=== PATIENT | female | born 1950 | race Caucasian/White ===

== ENCOUNTER 2016-09-02 05:50 | Day surgery (SDC) | payer OTHER ==
[2016-08-25 12:20] LABS: HEMATOCRIT 42.2 % (36.0-48.0); HEMOGLOBIN 13.6 g/dL (12.0-16.0)
[2016-08-25 12:33] LABS: BUN (BLOOD UREA NITROGEN) 16 MG/DL (6-23); CHLORIDE, SERUM 104 MMOL/L (96-112); CO2 (CARBON DIOXIDE) 29 MMOL/L (24-34); GFR AFRICAN AMERICAN 90 ML/MIN (>=60); GFR NON AFRICAN AMERICAN 77 ML/MIN (>=60); GLUCOSE, SERUM 100 MG/DL (60-99); POTASSIUM, SERUM 4.6 MMOL/L (3.5-5.3); SODIUM, SERUM 142 MMOL/L (135-148)
--- NOTE | ~2016-09-02 | OP ---
Record Of Operation [facility] [address] [place]. [address] NAME: TORI DU : 52 STATUS : REG [facility]#: [id number] AGE: 66 ADM/REG DATE : 09/02/16 MR#: [id number] REPORT SERV DATE: 09/02/16 DICTATED BY: JOE CERVANTES DATE: 09/02/16 REPORT STATUS : Draft TRANSCRIBED BY: MODL DATE: 09/02/16 DATE OF PROCEDURE: 09/02/2016 ANESTHESIA: General. COMPLICATIONS: None. ESTIMATED BLOOD LOSS: 10 mL. PREOPERATIVE DIAGNOSIS: Stress urinary incontinence. POSTOPERATIVE DIAGNOSIS: Stress urinary incontinence. OPERATION: 1. Advantage Fit suburethral sling. 2. Cystoscopy. PROCEDURE IN DETAIL: The patient was taken to the operating room and placed on the operating table in the Ruiz stirrups. After adequate anesthesia, the patient was prepped and draped in usual sterile fashion. The anterior vaginal wall was sharply and bluntly dissected off the underlying anterior fibromuscular tissue. Using the Advantage Fit system, needles were inserted upward through the retropubic space, and the mesh was placed just distal to the urethrovesical junction without any tension. The wound was irrigated. Hemostasis was noted to be good. Excess anterior vaginal wall was excised and reapproximated with running 2-0 Vicryl suture. Cystoscopy was performed ,with bilateral ureteral efflux of Pyridium dye, and no damage or sutures to the bladder. Leo and vaginal pack were placed. The patient tolerated the procedure well and taken to recovery room in stable condition. TISHA Joe Cervantes M.D. / [id number] CC: Rico Hyman JOHN D.
[~2016-09-02 05:50] MED LIST: ALEVE220 MG PO; CALTRAT600 PO; CONSTULOSE PO; CRESTOR10 PO; DULERA 100 MCG/13 GM INH; HUMIRA PEN SC; KAPIDEX60 MG PO; LORTAB 5 PO; METHOC500B PO; METHOC750B PO; NEXIUM20 M1 PO; P5 PO; PAXIL40 MG PO; PCET PO; PERCOCET1 TA4 PO; PLAQ200B PO; PVC V; TRAZ100 PO; VITD PO; ZANTAC 150 PO; ZESTORETIC1 TAB PO
[2016-09-02 12:10] LABS: BASOPHILS 0.2 %; BASOPHILS ABSOLUTE 0.01 10/3/uL (0.0-0.16); EOSINOPHILS 0.5 %; EOSINOPHILS ABSOLUTE 0.03 10/3/uL (0.0-0.53); HEMATOCRIT 39.1 % (36.0-48.0); HEMOGLOBIN 12.9 g/dL (12.0-16.0); IMMATURE GRANULOCYTES 0.2 %; IMMATURE GRANULOCYTES ABSOLUTE 0.01 10/3/uL (0.0-0.11); LYMPHOCYTES 12.7 %; LYMPHOCYTES ABSOLUTE 0.83 10/3/uL (0.67-4.30); MEAN CORPUSCULAR HEMOGLOB 30.6 pg (26.0-34.0); MEAN CORPUSCULAR VOLUME 92.9 fL (80-100); MEAN PLATELET VOLUME 10.6 fL (9.2-13.0); MONOCYTES 1.7 %; MONOCYTES ABSOLUTE 0.11 10/3/uL (0.21-1.20); NEUTROPHILS 84.7 %; NEUTROPHILS ABSOLUTE 5.53 10/3/uL (2.02-8.40); PLATELET COUNT 171 10/3/uL (150-400); RBC DISTRIBUTION WIDTH 13.5 % (12.0-16.0)
[2016-09-02 12:12] LABS: MANUAL DIFF NO %; RED CELL COUNT 4.21 10/6/uL (4.0-5.6); WHITE BLOOD CELLS 6.5 10/3/uL (4.5-10.5)
[2016-11-29] MEDS ORDERED: AREDS 2 PO (10:03)
[2016-11-29] MEDS ORDERED: VITD PO (10:04)
== END 2016-09-02 13:36 | disposition home or self-care (01) ==
LOC: SDC 05:50
PROVIDERS: Obstetrics & Gynecology Gynecology
PROC: 0TSD0ZZ Reposition Urethra, Open Approach (ICD-10-PCS; principal; 2016-09-02 07:15)
DX: N39.3 Stress incontinence (female) (male) (principal); E78.5 Hyperlipidemia, unspecified; M06.9 Rheumatoid arthritis, unspecified; M79.7 Fibromyalgia; J45.909 Unspecified asthma, uncomplicated; K21.9 Gastro-esophageal reflux disease without esophagitis; K44.9 Diaphragmatic hernia without obstruction or gangrene; F41.9 Anxiety disorder, unspecified; D64.9 Anemia, unspecified; M19.90 Unspecified osteoarthritis, unspecified site; E78.00 Pure hypercholesterolemia, unspecified; Z88.8 Allergy status to other drugs, medicaments and biological substances; Z88.5 Allergy status to narcotic agent; Z79.899 Other long term (current) drug therapy; Z98.890 Other specified postprocedural states; Z98.41 Cataract extraction status, right eye; Z98.42 Cataract extraction status, left eye; Z96.653 Presence of artificial knee joint, bilateral; Z90.89 Acquired absence of other organs; Z90.710 Acquired absence of both cervix and uterus
CPT/HCPCS: 36415; 80048; 85014; 85018; 85025; 86850; 86900; 86901; 93005; A9270-GY; C1729; C1771; J0694; J1885; J2250; J2405; J2710; J3010

== ENCOUNTER 2016-12-02 11:22 | Day surgery (SDC) | payer OTHER ==
[2016-11-26 10:16] LABS: HEMATOCRIT 36.1 % (36.0-48.0); HEMOGLOBIN 11.9 g/dL (12.0-16.0)
[2016-11-26 10:27] LABS: CALCIUM, SERUM 8.7 MG/DL (8.5-10.4); CHLORIDE, SERUM 107 MMOL/L (96-112); CO2 (CARBON DIOXIDE) 27 MMOL/L (24-34); CREATININE 0.75 MG/DL (0.55-1.02); GFR AFRICAN AMERICAN 97 ML/MIN (>=60); GFR NON AFRICAN AMERICAN 84 ML/MIN (>=60); GLUCOSE, SERUM 100 MG/DL (60-99); POTASSIUM, SERUM 3.9 MMOL/L (3.5-5.3); SODIUM, SERUM 142 MMOL/L (135-148)
[2016-11-26 10:29] LABS: BUN (BLOOD UREA NITROGEN) 9 MG/DL (6-23)
--- NOTE | ~2016-12-02 | OP ---
Record Of Operation [facility] [address] [place]. [address] NAME: TORI DU : 52 STATUS : [facility]#: [id number] AGE: 66 ADM/REG DATE : 12/02/16 MR#: [id number] REPORT SERV DATE: 12/07/16 DICTATED BY: TENNILLE LOYA DATE: 12/07/16 REPORT STATUS : Draft TRANSCRIBED BY: MODL DATE: 12/07/16 DATE OF PROCEDURE: 12/02/2016 PREOPERATIVE DIAGNOSES: 1. 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 2. Rheumatoid arthritis. POSTOPERATIVE DIAGNOSES: 1. 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 2. Rheumatoid arthritis. PROCEDURE: Left 1st metatarsophalangeal arthrodesis with internal fixation. SURGEON: Fredrick HunterPTristan ANESTHESIA: General and local anesthetic. ESTIMATED BLOOD LOSS: Minimal. COMPLICATION: None. INJECTABLES: Approximately 30 mL of a 1:1 mixture of 1% Xylocaine plain and 0.5% Marcaine plain. MATERIALS: Include first metatarsophalangeal joint fusion plating system from [employer], locking and nonlocking screw fixation, 2-0 and 4-0 Vicryl, 5-0 nylon, well-padded sterile dressing, CAM walker. PROCEDURE IN DETAIL: Under mild sedation, the patient was brought to the operating room and placed on the operating table in supine position. Following general anesthesia, local anesthesia was obtained about the patient's left foot. Left foot, ankle, and lower leg were scrubbed, prepped, and draped in usual aseptic manner. Attention was directed to the procedure. Procedure #1 is left first metatarsophalangeal joint arthrodesis with internal fixation. Attention was directed to the dorsal aspect of the patient's left first metatarsophalangeal joint where a linear incision was made medial and parallel to the extensor tendon involving the contour of the deformity of the first metatarsophalangeal joint. The incision was deepened to subcutaneous tissue with care being taken to identify and retract all vital neurovascular structures. All bleeders were cauterized and ligated as necessary. Linear capsular incision was made medial and parallel to the extensor tendon. All capsular tissues reflected medially and laterally exposing the arthritic 1st metatarsophalangeal joint. At this time, all dorsal bossing and spurring were resected utilizing a sagittal saw. At this time, utilizing cup and cone reamers, the head of the metatarsal and base of the proximal phalanx were reamed of any remaining cartilaginous tissue with penetration of the subchondral plate. Fenestration ensued and a subchondral bleeding was present. At this Record Of Operation [facility] [address] [place] [address] NAME: TORI DU : 52 STATUS : [facility]#: [id number] AGE: 66 ADM/REG DATE : 12/02/16 MR#: [id number] REPORT SERV DATE: 12/07/16 DICTATED BY: TENNILLE LOYA DATE: 12/07/16 REPORT STATUS : Draft TRANSCRIBED BY: JHONATHAN DATE: 12/07/16 time, the first metatarsal was manually reduced in a more rectus position and the great toe was held in a rectus position as well. Temporary fixation with a dorsal plating system was applied to the dorsal aspect of the first metatarsophalangeal joint. Next, cannulated 3.0 screw was placed across the first metatarsophalangeal with excellent compression noted. Locking and nonlocking screw fixation was placed throughout the 1st metatarsal phalangeal joint plate. Excellent positioning was noted under fluoroscopy guidance. Excellent stabilization was present. Copious irrigation ensued. The capsular tissue was reapproximated and coapted using 2-0 Vicryl. Skin was reapproximated and coapted using 5-0 nylon in interrupted and continuous suture technique. A well-padded sterile dressing and well-padded CAM walker were placed about the patient's left foot and ankle. The patient tolerated the procedure and anesthesia well and was transferred to the recovery room with vital signs stable. Vascular status intact to all toes. Following a period of postoperative monitoring, the patient will be discharged home on the following written and oral postoperative instructions. 1. Keep dressings clean, dry, and intact. 2. Partial weightbearing for transition, knee walker for long distance. Ice and elevate again as directed. Take medications as prescribed and followup with Dr. Loya in 7-14 days. GORDON/JHONATHAN Areli Loya D.P.M. / [id number] CC: Brianna Hunter M.D.
[~2016-12-02 11:22] MED LIST changes: +AREDS 2 PO
== END 2016-12-02 18:47 | disposition home or self-care (01) ==
LOC: SDC 11:22
PROVIDERS: Podiatrist Foot & Ankle Surgery
PROC: 0SGN04Z Fusion of Left Metatarsal-Phalangeal Joint with Internal Fixation Device, Open Approach (ICD-10-PCS; principal; 2016-12-02 13:00)
DX: M19.072 Primary osteoarthritis, left ankle and foot (principal); M06.9 Rheumatoid arthritis, unspecified; J45.909 Unspecified asthma, uncomplicated; K21.9 Gastro-esophageal reflux disease without esophagitis; F41.9 Anxiety disorder, unspecified; D64.9 Anemia, unspecified; E78.00 Pure hypercholesterolemia, unspecified; Z88.8 Allergy status to other drugs, medicaments and biological substances; Z88.5 Allergy status to narcotic agent; Z98.890 Other specified postprocedural states; Z90.710 Acquired absence of both cervix and uterus
CPT/HCPCS: 76000; 80048; 85014; 85018; 93005; A9270-GY; C1713; C1769; J0690; J2250; J2405; J3010